=== PATIENT | female | born 1945 | race African-American/Black ===

== ENCOUNTER 2018-11-06 16:05 | Observation (INO) | payer SELFPAY ==
[2018-11-06] MEDS ORDERED: Ondansetron 4 MG/2 ML SDV IVPUSH ONE ×2 (16:40→19:01)
[2018-11-06] MEDS ORDERED: Ketorolac 30 MG/ML SDV IVPUSH ONE (16:40)
[2018-11-06] MEDS ORDERED: Sodium Chloride 0.9% 1,000 ML IV ONE (16:40)
--- NOTE | 2018-11-06 16:43 | EDM.PDOC ---
ED HPI GENERAL MEDICAL PROBLEM - General Chief Complaint: Headache Stated Complaint: SPOKE TO NURSE Time Seen by Provider: 11/06/18 16:37 Source of Information: Reports: Patient History Limitations: Reports: No Limitations - History of Present Illness INITIAL COMMENTS - FREE TEXT/NARRATIVE: HISTORY AND PHYSICAL: History of present illness: Patient is a 73-year-old female who presents to the emergency room with complaints of body aches, headache, decreased appetite and generalized abdominal pain x 1 week. She states that she has had a generalized headache without any light or noise sensitivity. She will occasionally get flashes of lights in her vision. Currently no visual changes. States she has generalized abdominal pain and decreased appetite, no nausea or vomiting. Concerned that she may be constipated. Denies any fever, chills, chest pain, shortness of breath or cough. Denies any diarrhea, vaginal bleeding/discharge or dysuria. The son who is with her states that she recently moved here from [place] after getting paperwork completed for residency in the [facility]. They are from [facility]. Speak a dialect of "thats not in the books". Son wanted her evaluated through the emergency room as they do not have a primary care provider with the recent move. Patient does have a history of hypertension. Review of systems: As per history of present illness and below otherwise all systems reviewed and negative. Past medical history: As per history of present illness and as reviewed below otherwise noncontributory. Surgical history: As per history of present illness and as reviewed below otherwise noncontributory. Social history: See social history for further information Family history: As per history of present illness and as reviewed below otherwise noncontributory. Physical exam: General: Well-developed and well nourished 73-year-old female. Alert. Nontoxic appearing and in no acute distress. HEENT: Atraumatic, normocephalic, pupils equal and reactive bilaterally, patient does have a normal variance of the droop of the right eye, negative for conjunctival pallor or scleral icterus, mucous membranes moist, TMs normal bilaterally, throat clear, neck supple, nontender, trachea midline. No drooling or trismus noted. No meningeal signs. No hot potato voice noted. Lungs: Clear to auscultation, breath sounds equal bilaterally, chest nontender. Heart: S1S2, regular rate and rhythm without overt murmur Abdomen: Soft, nondistended, diffuse tenderness throughout. Negative for masses or hepatosplenomegaly. Negative for costovertebral tenderness. Pelvis: Stable nontender. Genitourinary: Deferred. Rectal: Deferred. Skin: Intact, warm, dry. No lesions or rashes noted. Extremities: Atraumatic, negative for cords or calf pain. Neurovascular unremarkable. Neuro: Awake, alert, oriented. Cranial nerves II through XII unremarkable. Cerebellum unremarkable. Motor and sensory unremarkable throughout. Exam nonfocal. Notes: Lab work is unremarkable. Her abdominal xray films are negative. No previous EKG for comparison. This information was shared with the patient. She continues to have headache pain, abdominal pain, high blood pressure. I will add a head CT and CT of the abdomen and pelvis at this time. CT of the abdomen shows diverticulosis of the sigmoid colon without any evidence of diverticulitis or abscess. Otherwise CT is normal. CT of the head shows no intracranial hemorrhage, mass or lesions. There is some dense calcifications noted. Patient states she still has abdominal pain and migraine headache. Delma was consulted on this patient to this agreeable to keeping her for observation with telemetry. Diagnostics: CBC, CMP, influenza, UA, amylase, lipase Therapeutics: IV fluid, Zofran, Toradol Prescription: None Impression: Diffuse abdominal pain Intractible headache Plan: Observation admission to Med Surg with telemetry per Delma Definitive disposition and diagnosis as appropriate pending reevaluation and review of above. headache Pain Score (Numeric/FACES): 10 - Related Data Allergies Allergy/AdvReac Type Severity Reaction Status Date / Time No Known Allergies Allergy Verified 11/06/18 16:18 Home Meds: Home Meds Atropine 1% [Atropine 1% Ophth Soln] 1 drop EYERT DAILY 11/06/18 [History] Dorzolamide HCl/Timolol Maleat [Cosopt Eye Drops] 1 drop EARRT BID 11/06/18 [ History] amLODIPine Besylate [Amlodipine Besylate] 5 mg PO DAILY 11/06/18 [History] Past Medical History HEENT History: Reports: Cataract Other HEENT History: needs to have cataract surgery to repair retenia Cardiovascular History: Reports: Hypertension - Infectious Disease History Infectious Disease History: Reports: None Social & Family History - Family History Family Medical History: Noncontributory - Tobacco Use Smoking Status *Q: Never Smoker - Recreational Drug Use Recreational Drug Use: No ED ROS GENERAL - Review of Systems Review Of Systems: ROS reveals no pertinent complaints other than HPI. - Physical Exam Exam: See Below (See dictation) Course - Vital Signs Last Recorded V/S: Last Vital Signs Temp 98.2 F 11/06/18 20:48 Pulse 101 H 11/06/18 20:48 Resp 16 11/06/18 19:37 BP 153/84 H 11/06/18 20:48 Pulse Ox 98 11/06/18 20:48 - Orders/Labs/Meds Orders: Active Orders 24 hr Category Date Time Status EKG Documentation Completion [RC] STAT Care 11/06/18 17:38 Active Sodium Chloride 0.9% [Normal Saline] 1,000 ml Med 11/06/18 19:15 Active IV ASDIRECTED Medication Orders Sodium Chloride (Normal Saline) 1,000 mls @ 125 mls/hr IV ASDIRECTED JOELLEN Last Admin: 11/06/18 20:07 Dose: 125 mls/hr Labs: Laboratory Tests 11/06/18 11/06/18 11/06/18 Range/Units 16:53 16:53 16:53 WBC 7.46 (4.0-11.0) K/uL RBC 5.68 (4.30-5.90) M/uL Hgb 12.6 (12.0-16.0) g/dL Hct 38.9 (36.0-46.0) % MCV 68.5 L (80.0-98.0) fL MCH 22.2 L (27.0-32.0) pg MCHC 32.4 (31.0-37.0) g/dL RDW Std Deviation 33.3 (28.0-62.0) fl RDW Coeff of Yvette 14 (11.0-15.0) % Plt Count 280 (150-400) K/uL MPV 10.60 (7.40-12.00) fL Neut % (Auto) 60.4 (48.0-80.0) % Lymph % (Auto) 31.2 (16.0-40.0) % [place] % (Auto) 6.7 (0.0-15.0) % Eos % (Auto) 1.3 (0.0-7.0) % Baso % (Auto) 0.4 (0.0-1.5) % Neut # (Auto) 4.5 (1.4-5.7) K/uL Lymph # (Auto) 2.3 (0.6-2.4) K/uL [place] # (Auto) 0.5 (0.0-0.8) K/uL Eos # (Auto) 0.1 (0.0-0.7) K/uL Baso # (Auto) 0.0 (0.0-0.1) K/uL Nucleated RBC % 0.0 /100WBC Nucleated RBCs # 0 K/uL Sodium 140 (136-145) mmol/L Potassium 3.4 L (3.5-5.1) mmol/L Chloride 105 (98-107) mmol/L Carbon Dioxide 20.2 L (21.0-32.0) mmol/L BUN 13 (7.0-18.0) mg/dL Creatinine 0.6 (0.6-1.0) mg/dL Est Cr Clr Drug Dosing 73.19 mL/min Estimated GFR (MDRD) > 60.0 ml/min Glucose 123 H (74-106) mg/dL Calcium 10.2 H (8.5-10.1) mg/dL Total Bilirubin 0.3 (0.2-1.0) mg/dL AST 26 (15-37) IU/L ALT 37 (14-63) IU/L Alkaline Phosphatase 125 H (46-116) U/L Troponin I < 0.050 (0.000-0.056) ng/mL Total Protein 9.2 H (6.4-8.2) g/dL Albumin 4.3 (3.4-5.0) g/dL Globulin 4.9 H (2.6-4.0) g/dL Albumin/Globulin Ratio 0.9 (0.9-1.6) Amylase 38 (25-115) U/L Lipase 99 (73-393) U/L Urine Color Urine Appearance Urine pH (5.0-8.0) Ur Specific [place] (1.001-1.035) Urine Protein (NEGATIVE) mg/dL Urine Glucose (UA) (NEGATIVE) mg/dL Urine Ketones (NEGATIVE) mg/dL Urine Occult Blood (NEGATIVE) Urine Nitrite (NEGATIVE) Urine Bilirubin (NEGATIVE) Urine Urobilinogen (<2.0) EU/dL Ur Leukocyte Esterase (NEGATIVE) Urine RBC (0-2/HPF) Urine WBC (0-5/HPF) Ur Epithelial Cells (NONE-FEW) Urine Bacteria (NEGATIVE) 11/06/18 Range/Units 17:08 WBC (4.0-11.0) K/uL RBC (4.30-5.90) M/uL Hgb (12.0-16.0) g/dL Hct (36.0-46.0) % MCV (80.0-98.0) fL MCH (27.0-32.0) pg MCHC (31.0-37.0) g/dL RDW Std Deviation (28.0-62.0) fl RDW Coeff of Yvette (11.0-15.0) % Plt Count (150-400) K/uL MPV (7.40-12.00) fL Neut % (Auto) (48.0-80.0) % Lymph % (Auto) (16.0-40.0) % [place] % (Auto) (0.0-15.0) % Eos % (Auto) (0.0-7.0) % Baso % (Auto) (0.0-1.5) % Neut # (Auto) (1.4-5.7) K/uL Lymph # (Auto) (0.6-2.4) K/uL [place] # (Auto) (0.0-0.8) K/uL Eos # (Auto) (0.0-0.7) K/uL Baso # (Auto) (0.0-0.1) K/uL Nucleated RBC % /100WBC Nucleated RBCs # K/uL Sodium (136-145) mmol/L Potassium (3.5-5.1) mmol/L Chloride (98-107) mmol/L Carbon Dioxide (21.0-32.0) mmol/L BUN (7.0-18.0) mg/dL Creatinine (0.6-1.0) mg/dL Est Cr Clr Drug Dosing mL/min Estimated GFR (MDRD) ml/min Glucose (74-106) mg/dL Calcium (8.5-10.1) mg/dL Total Bilirubin (0.2-1.0) mg/dL AST (15-37) IU/L ALT (14-63) IU/L Alkaline Phosphatase (46-116) U/L Troponin I (0.000-0.056) ng/mL Total Protein (6.4-8.2) g/dL Albumin (3.4-5.0) g/dL Globulin (2.6-4.0) g/dL Albumin/Globulin Ratio (0.9-1.6) Amylase (25-115) U/L Lipase (73-393) U/L Urine Color YELLOW Urine Appearance CLEAR Urine pH 5.5 (5.0-8.0) Ur Specific [place] 1.010 (1.001-1.035) Urine Protein TRACE H (NEGATIVE) mg/dL Urine Glucose (UA) NEGATIVE (NEGATIVE) mg/dL Urine Ketones NEGATIVE (NEGATIVE) mg/dL Urine Occult Blood MODERATE H (NEGATIVE) Urine Nitrite NEGATIVE (NEGATIVE) Urine Bilirubin NEGATIVE (NEGATIVE) Urine Urobilinogen 0.2 (<2.0) EU/dL Ur Leukocyte Esterase NEGATIVE (NEGATIVE) Urine RBC 1-2 (0-2/HPF) Urine WBC 0-2 (0-5/HPF) Ur Epithelial Cells FEW (NONE-FEW) Urine Bacteria FEW (NEGATIVE) Meds: Medications Generic Name Dose Route Start Last Admin Trade Name Freq PRN Reason Stop Dose Admin Sodium Chloride 1,000 mls @ 125 mls/hr 11/06/18 19:15 11/06/18 20:07 Normal Saline IV 125 mls/hr ASDIRECTED JOELLEN Administration Discontinued Medications Generic Name Dose Route Start Last Admin Trade Name Freq PRN Reason Stop Dose Admin Sodium Chloride 1,000 mls @ 999 mls/hr 11/06/18 16:40 11/06/18 17:02 Normal Saline IV 11/06/18 17:40 999 mls/hr STAT ONE Administration Ketorolac Tromethamine 30 mg 11/06/18 16:40 11/06/18 17:02 Toradol IVPUSH 11/06/18 16:41 30 mg ONETIME ONE Administration Morphine Sulfate 2 mg 11/06/18 19:06 11/06/18 19:19 Morphine IVPUSH 11/06/18 19:07 2 mg ONETIME ONE Administration Ondansetron HCl 4 mg 11/06/18 16:40 11/06/18 17:02 Zofran IVPUSH 11/06/18 16:41 4 mg ONETIME ONE Administration Ondansetron HCl 4 mg 11/06/18 19:01 11/06/18 19:18 Zofran IVPUSH 11/06/18 19:02 4 mg ONETIME ONE Administration Departure - Departure Time of Disposition: 21:38 Disposition: Refer to Observation Clinical Impression: Diffuse abdominal pain Intractable migraine Qualifiers: Migraine type: unspecified - Discharge Information Referrals: PCP,None [Primary Care Provider] - Forms: ED Department Discharge - My Orders Last 24 Hours: My Active Orders 11/06/18 17:38 EKG Documentation Completion [RC] STAT 11/06/18 19:15 Sodium Chloride 0.9% [Normal Saline] 1,000 ml IV ASDIRECTED - Assessment/Plan Last 24 Hours: My Active Orders 11/06/18 17:38 EKG Documentation Completion [RC] STAT 11/06/18 19:15 Sodium Chloride 0.9% [Normal Saline] 1,000 ml IV ASDIRECTED
[2018-11-06 17:44] LABS: CHLORIDE,CL 105 mmol/L (98-107); SODIUM,NA 140 mmol/L (136-145)
--- NOTE | 2018-11-06 18:30 | CR ---
INDICATION: Abdominal pain. COMPARISON: None. TECHNIQUE: Single AP chest; two-view study abdomen including upright. FINDINGS: Normal size cardiac silhouette. Clear lung lance without evidence of acute pneumonic infiltrates or CHF. No pneumothorax or pleural effusion. Nonspecific intestinal gas pattern without any evidence of intestinal obstruction. No pneumoperitoneum. No abnormal intra-abdominal calcifications are identified. IMPRESSION: Negative chest and abdominal radiographs. Dictated by Sofia Cottrell MD @ Nov 06 2018 6:27PM Signed by Dr. Sofia Cottrell @ Nov 06 2018 6:28PM
[2018-11-06] MEDS ORDERED: Morphine 2 MG/ML Syringe IVPUSH ONE (19:06)
[2018-11-06] MEDS ORDERED: Sodium Chloride 0.9% 1,000 ML IV SCH (19:15)
--- NOTE | 2018-11-06 20:50 | CT ---
INDICATION: Abdominal pain. COMPARISON: Chest and abdominal radiograph same date. TECHNIQUE: CT abdomen and pelvis with intravenous contrast; coronal and sagittal reformats. FINDINGS: No abnormal intra pulmonary nodular densities through the lung bases. No evidence of pleural effusion. Normal size cardiac silhouette without any evidence of pericardial effusion. No focal hepatic or splenic pathology. No pancreatic pathology. Gallbladder is unremarkable. No adrenal pathology. No kidney stones or obstructive uropathy. No retroperitoneal lymphadenopathy. No evidence of abdominal or pelvic ascites. Normal appendix. Copious amounts of retained stool in the colon. Diverticulosis sigmoid colon without any CT evidence of diverticulitis or abscess. No evidence of intestinal obstruction. Splenic vein, superior mesenteric vein and the portal vein are unremarkable. Impression : 1. Normal appendix. 2. No kidneys stones or obstructive uropathy. 3. Diverticulosis sigmoid colon without any CT evidence of diverticulitis or abscess. 4. No pneumoperitoneum or intestinal obstruction. 5. Negative CT abdomen and pelvis with intravenous contrast otherwise. Please note that all CT scans at this facility use dose modulation, iterative reconstruction, and/or weight-based dosing when appropriate to reduce radiation dose to as low as reasonably achievable. Dictated by Sofia Cottrell MD @ Nov 06 2018 8:44PM Signed by Dr. Sofia Cottrell @ Nov 06 2018 8:47PM
--- NOTE | 2018-11-06 21:17 | CT ---
INDICATION: Headache; generalized body aches . Comparison: Non. TECHNIQUE: CT head without intravenous contrast; coronal and sagittal reformats. FINDINGS: No evidence of intracranial hemorrhage. No mass lesions. No evidence of shift of the midline structures. The calvarium is unremarkable. Dense calcification identified diffusely involving the basilar ganglia bilateral. Calcifications identified in the right cerebellum. Sometimes these findings can be associated with Fahr disease. Retention cyst left maxillary antrum. Fluid level right maxillary antrum. Impression : 1. Dense calcification right cerebellum. 2. Dense calcifications basilar ganglia bilateral. 3. If clinically needed, further assessment can be obtained by obtaining an MR study of the brain. 4. Fluid level right maxillary antrum and retention cyst in the left maxillary antrum. 5. No intracranial hemorrhage. Please note that all CT scans at this facility use dose modulation, iterative reconstruction, and/or weight-based dosing when appropriate to reduce radiation dose to as low as reasonably achievable. Dictated by Sofia Cottrell MD @ Nov 06 2018 8:43PM Signed by Dr. Sofia Cottrell @ Nov 06 2018 9:15PM
[2018-11-06] MEDS ORDERED: Acetaminophen 325 MG Tab PO PRN (23:14)
[2018-11-06] MEDS ORDERED: oxyCODONE 5 MG Tab PO PRN (23:14)
[2018-11-07] MEDS: Temazepam 15 MG Cap PO PRN ×2 (00:22→20:52)
[2018-11-07] MEDS: Sodium Chloride 0.9% 1,000 ML IV SCH ×2 (04:25→15:22)
[2018-11-07 07:15] LABS: CHLORIDE,CL 110 mmol/L (98-107); SODIUM,NA 143 mmol/L (136-145)
--- NOTE | 2018-11-07 07:27 | PCM.HP ---
H&P History of Present Illness - General Date of Service: 11/07/18 Admit Problem/Dx: Admission Diagnosis/Problem Admission Diagnosis/Problem Intractable headache Source of Information: Patient, Family History Limitations: Reports: Language Barrier - History of Present Illness Initial Comments - Free Text/Narative: The patient is a 73-year-old lady who presented to the emergency department with a chief complaint of not feeling well, headache and abdominal pain. The patient reports that she has had no bowel movement in the past several days. The patient came from [facility] in 2017 and she speaks a very isolated dialect that is not available through animal anatomist service. The patient's son is with her today and has been helping with translation. The patient has been feeling weak and fatigued for several weeks and may have had a presyncopal episode. He described as losing her feet and she has to sit down on the ground. The patient' s appetite has also been poor. She has had a history of chronic headaches secondary to her glaucoma and blind right eye. The patient today has denied any abdominal pain although she still is complaining of constipation. The patient has denied any fever or chills. The only medication that she has been taking his for her hypertension and this has been amlodipine at 5 mg by mouth daily. Also in the emergency department the patient's initial blood pressure was 186/ 99 mmHg. Her son says that she has been taking her medications and also has been noted to have both high and very low blood pressure. Onset of Symptoms: Reports: Gradual Duration of Symptoms: Reports: Day(s): Location: Reports: Head, Abdomen Quality: Reports: Throbbing Severity: Moderate Improves with: Reports: Rest Worsens with: Reports: Movement Context: Reports: Activity/Exercise Associated Symptoms: Reports: No Other Symptoms headache Pain Score (Numeric/FACES): 10 - Related Data Allergies/Adverse Reactions: Allergies Allergy/AdvReac Type Severity Reaction Status Date / Time No Known Allergies Allergy Verified 11/06/18 16:18 Home Medications: Home Meds amLODIPine Besylate [Amlodipine Besylate] 5 mg PO DAILY 11/06/18 [History] Dorzolamide HCl/Timolol Maleat [Dorzolamide-Timolol Eye Drops] 1 drop EYERT BID 11/07/18 [History] Past Medical History HEENT History: Reports: Cataract Other HEENT History: needs to have cataract surgery to repair retenia Cardiovascular History: Reports: Hypertension Respiratory History: Reports: None Gastrointestinal History: Reports: Chronic Constipation Genitourinary History: Reports: None Musculoskeletal History: Reports: None Neurological History: Reports: None Psychiatric History: Reports: None Endocrine/Metabolic History: Reports: None Hematologic History: Reports: None Immunologic History: Reports: None Dermatologic History: Reports: None - Infectious Disease History Infectious Disease History: Reports: None Social & Family History - Family History Family Medical History: Noncontributory - Tobacco Use Smoking Status *Q: Never Smoker - Caffeine Use Caffeine Use: Reports: None - Recreational Drug Use Recreational Drug Use: No - Living Situation & Occupation Living situation: Reports: , with Family Occupation: Unemployed H&P Review of Systems - Review of Systems: Review Of Systems: ROS reveals no pertinent complaints other than HPI. Exam - Exam Exam: See Below - Vital Signs Vital Signs: Last Vital Signs Temp 36.4 C 11/07/18 04:43 Pulse 86 11/07/18 04:43 Resp 16 11/07/18 04:43 BP 104/62 11/07/18 04:43 Pulse Ox 96 11/07/18 04:43 Weight: 62.278 kg - Exam Quality Assessment: No: Supplemental Oxygen General: Alert, Oriented, Cooperative HEENT: Conjunctiva Clear, EACs Clear, EOMI, Normal Nasal Septum. No: Mucosa Moist & [place] (Dry), PERRLA (Blind right eye) Neck: Supple, Trachea Midline, Full Range of Motion Lungs: Clear to Auscultation, Normal Respiratory Effort Cardiovascular: Regular Rate, Regular Rhythm, Normal S1, Normal S2 GI/Abdominal Exam: Normal Bowel Sounds, Soft, Non-Tender, No Distention (Female) Exam: Deferred Rectal (Female) Exam: Deferred Back Exam: Normal Inspection, Full Range of Motion Extremities: Normal Inspection, No Pedal Edema Skin: Warm, Dry, Intact Neurological: Cranial Nerves Intact Psychiatric: Alert, Normal Mood. No: Normal Affect (Flat) - Patient Data Lab Results Last 24 hrs: Laboratory Results - last 24 hr 11/06/18 11/06/18 11/06/18 Range/Units 16:53 16:53 16:53 WBC 7.46 (4.0-11.0) K/uL RBC 5.68 (4.30-5.90) M/uL Hgb 12.6 (12.0-16.0) g/dL Hct 38.9 (36.0-46.0) % MCV 68.5 L (80.0-98.0) fL MCH 22.2 L (27.0-32.0) pg MCHC 32.4 (31.0-37.0) g/dL RDW Std Deviation 33.3 (28.0-62.0) fl RDW Coeff of Yvette 14 (11.0-15.0) % Plt Count 280 (150-400) K/uL MPV 10.60 (7.40-12.00) fL Neut % (Auto) 60.4 (48.0-80.0) % Lymph % (Auto) 31.2 (16.0-40.0) % [place] % (Auto) 6.7 (0.0-15.0) % Eos % (Auto) 1.3 (0.0-7.0) % Baso % (Auto) 0.4 (0.0-1.5) % Neut # (Auto) 4.5 (1.4-5.7) K/uL Lymph # (Auto) 2.3 (0.6-2.4) K/uL [place] # (Auto) 0.5 (0.0-0.8) K/uL Eos # (Auto) 0.1 (0.0-0.7) K/uL Baso # (Auto) 0.0 (0.0-0.1) K/uL Nucleated RBC % 0.0 /100WBC Nucleated RBCs # 0 K/uL Sodium 140 (136-145) mmol/L Potassium 3.4 L (3.5-5.1) mmol/L Chloride 105 (98-107) mmol/L Carbon Dioxide 20.2 L (21.0-32.0) mmol/L BUN 13 (7.0-18.0) mg/dL Creatinine 0.6 (0.6-1.0) mg/dL Est Cr Clr Drug Dosing 73.19 mL/min Estimated GFR (MDRD) > 60.0 ml/min Glucose 123 H (74-106) mg/dL Calcium 10.2 H (8.5-10.1) mg/dL Phosphorus (2.6-4.7) mg/dL Magnesium (1.8-2.4) mg/dL Total Bilirubin 0.3 (0.2-1.0) mg/dL AST 26 (15-37) IU/L ALT 37 (14-63) IU/L Alkaline Phosphatase 125 H (46-116) U/L Troponin I < 0.050 (0.000-0.056) ng/mL Total Protein 9.2 H (6.4-8.2) g/dL Albumin 4.3 (3.4-5.0) g/dL Globulin 4.9 H (2.6-4.0) g/dL Albumin/Globulin Ratio 0.9 (0.9-1.6) Amylase 38 (25-115) U/L Lipase 99 (73-393) U/L Urine Color Urine Appearance Urine pH (5.0-8.0) Ur Specific [place] (1.001-1.035) Urine Protein (NEGATIVE) mg/dL Urine Glucose (UA) (NEGATIVE) mg/dL Urine Ketones (NEGATIVE) mg/dL Urine Occult Blood (NEGATIVE) Urine Nitrite (NEGATIVE) Urine Bilirubin (NEGATIVE) Urine Urobilinogen (<2.0) EU/dL Ur Leukocyte Esterase (NEGATIVE) Urine RBC (0-2/HPF) Urine WBC (0-5/HPF) Ur Epithelial Cells (NONE-FEW) Urine Bacteria (NEGATIVE) 11/06/18 11/07/18 11/07/18 Range/Units 17:08 06:13 06:13 WBC 6.64 (4.0-11.0) K/uL RBC 4.63 (4.30-5.90) M/uL Hgb 10.0 L (12.0-16.0) g/dL Hct 32.2 L (36.0-46.0) % MCV 69.5 L (80.0-98.0) fL MCH 21.6 L (27.0-32.0) pg MCHC 31.1 (31.0-37.0) g/dL RDW Std Deviation 34.4 (28.0-62.0) fl RDW Coeff of Yvette 14 (11.0-15.0) % Plt Count 236 (150-400) K/uL MPV 10.50 (7.40-12.00) fL Neut % (Auto) 56.4 (48.0-80.0) % Lymph % (Auto) 34.0 (16.0-40.0) % [place] % (Auto) 8.4 (0.0-15.0) % Eos % (Auto) 0.9 (0.0-7.0) % Baso % (Auto) 0.3 (0.0-1.5) % Neut # (Auto) 3.7 (1.4-5.7) K/uL Lymph # (Auto) 2.3 (0.6-2.4) K/uL [place] # (Auto) 0.6 (0.0-0.8) K/uL Eos # (Auto) 0.1 (0.0-0.7) K/uL Baso # (Auto) 0.0 (0.0-0.1) K/uL Nucleated RBC % 0.0 /100WBC Nucleated RBCs # 0 K/uL Sodium 143 (136-145) mmol/L Potassium 3.3 L (3.5-5.1) mmol/L Chloride 110 H (98-107) mmol/L Carbon Dioxide 22.8 (21.0-32.0) mmol/L BUN 11 (7.0-18.0) mg/dL Creatinine 0.7 (0.6-1.0) mg/dL Est Cr Clr Drug Dosing 68.01 mL/min Estimated GFR (MDRD) > 60.0 ml/min Glucose 95 (74-106) mg/dL Calcium 9.0 (8.5-10.1) mg/dL Phosphorus 2.8 (2.6-4.7) mg/dL Magnesium 1.9 (1.8-2.4) mg/dL Total Bilirubin 0.2 (0.2-1.0) mg/dL AST 14 L (15-37) IU/L ALT 22 (14-63) IU/L Alkaline Phosphatase 96 (46-116) U/L Troponin I (0.000-0.056) ng/mL Total Protein 7.6 (6.4-8.2) g/dL Albumin 3.2 L (3.4-5.0) g/dL Globulin 4.4 H (2.6-4.0) g/dL Albumin/Globulin Ratio 0.7 L (0.9-1.6) Amylase (25-115) U/L Lipase (73-393) U/L Urine Color YELLOW Urine Appearance CLEAR Urine pH 5.5 (5.0-8.0) Ur Specific [place] 1.010 (1.001-1.035) Urine Protein TRACE H (NEGATIVE) mg/dL Urine Glucose (UA) NEGATIVE (NEGATIVE) mg/dL Urine Ketones NEGATIVE (NEGATIVE) mg/dL Urine Occult Blood MODERATE H (NEGATIVE) Urine Nitrite NEGATIVE (NEGATIVE) Urine Bilirubin NEGATIVE (NEGATIVE) Urine Urobilinogen 0.2 (<2.0) EU/dL Ur Leukocyte Esterase NEGATIVE (NEGATIVE) Urine RBC 1-2 (0-2/HPF) Urine WBC 0-2 (0-5/HPF) Ur Epithelial Cells FEW (NONE-FEW) Urine Bacteria FEW (NEGATIVE) Result Diagrams: 11/07/18 06:13 11/07/18 06:13 Leonard Results Last 24 hrs: Microbiology 11/06/18 17:08 Influenza Type A Antigen Screen - Final Nasopharyngeal Swab NEGATIVE INFLUENZA A VIRUS AG Influenza Type B Antigen Screen - Final NEGATIVE INFLUENZA B VIRUS AG *Q Meaningful Use (ADM) - VTE *Q VTE Mechanical Contraindications *Q: At Risk for Falls - Problem List (1) Right bundle branch block (RBBB) with left anterior fascicular block (LAFB) SNOMED Code(s): 46613284 ICD Code: I45.2 - BIFASCICULAR BLOCK Status: Chronic Priority: High Current Visit: Yes (2) Diffuse abdominal pain SNOMED Code(s): 035192717, 587154584 ICD Code: R10.84 - GENERALIZED ABDOMINAL PAIN Status: Acute Current Visit : Yes (3) Blind right eye SNOMED Code(s): 621534319 ICD Code: H54.40 - BLINDNESS, ONE EYE, UNSPECIFIED EYE Status: Chronic Priority: High Current Visit: Yes (4) Constipation SNOMED Code(s): 67766140 ICD Code: K59.00 - CONSTIPATION, UNSPECIFIED Status: Acute Priority: High Current Visit: Yes Qualifiers: Constipation type: other constipation type Qualified Code(s): K59.09 - Other constipation (5) Hypertension SNOMED Code(s): 45533616 ICD Code: I10 - ESSENTIAL (PRIMARY) HYPERTENSION Status: Chronic Priority : High Current Visit: Yes Qualifiers: Hypertension type: essential hypertension Qualified Code(s): I10 - Essential (primary) hypertension (6) Hypokalemia SNOMED Code(s): 95166347 ICD Code: E87.6 - HYPOKALEMIA Status: Acute Priority: High Current Visit: Yes (7) Neurocardiogenic pre-syncope SNOMED Code(s): 160751884 ICD Code: R55 - SYNCOPE AND COLLAPSE Status: Acute Priority: High Current Visit: Yes (8) Weakness SNOMED Code(s): 32909691 ICD Code: R53.1 - WEAKNESS Status: Chronic Priority: High Current Visit : Yes Problem List Initiated/Reviewed/Updated: Yes Orders Last 24hrs: Active Orders 24 hr Category Date Time Status Admission Status [Patient Status] [ADT] Stat ADT 11/06/18 21:31 Active EKG Documentation Completion [RC] STAT Care 11/06/18 17:38 Active Clear Liquid Diet [DIET] Diet 11/07/18 Breakfast Active Acetaminophen [Tylenol] Med 11/06/18 23:14 Active 650 mg PO Q4H PRN Atropine 1% [Atropine 1% Ophth Soln] Med 11/07/18 09:00 Active 0 ml EYERT DAILY Dorzolamide [Trusopt 2% Ophth Soln] Med 11/07/18 09:00 Active See Dose Instructions .XX DAILY FLU Vacc SF1010-80(65YR UP)/PF [Fluzone High-Dose 2018- Med 11/07/18 10:00 Once 19 Syringe] 180 mcg IM .ONCE ONE Sodium Chloride 0.9% [Normal Saline] 1,000 ml Med 11/06/18 23:30 Active IV ASDIRECTED Temazepam [Restoril] Med 11/06/18 23:14 Active 15 mg PO BEDTIME PRN amLODIPine [Norvasc] Med 11/07/18 09:00 Active 5 mg PO DAILY oxyCODONE Med 11/06/18 23:14 Active 5 mg PO Q4H PRN Medication Orders Acetaminophen (Tylenol) 650 mg PO Q4H PRN PRN Reason: Pain (mild 1-3) Amlodipine Besylate (Norvasc) 5 mg PO DAILY JOELLEN Atropine Sulfate (Atropine 1% Ophth Soln) 0 ml EYERT DAILY JOELLEN Dorzolamide HCl (Trusopt 2% Ophth Soln) 0 ml .XX DAILY JOELLEN Sodium Chloride (Normal Saline) 1,000 mls @ 100 mls/hr IV ASDIRECTED JOELLEN Last Admin: 11/07/18 04:25 Dose: 100 mls/hr Influenza Virus Vaccine (Fluzone High-Dose Syringe) 180 mcg IM .ONCE ONE Stop: 11/07/18 10:01 Oxycodone HCl (Oxycodone) 5 mg PO Q4H PRN PRN Reason: Pain (severe 7-10) Temazepam (Restoril) 15 mg PO BEDTIME PRN PRN Reason: Sleep Last Admin: 11/07/18 00:22 Dose: 15 mg Assessment/Plan Comment:: The patient is a 73-year-old lady who is admitted secondary to some vague complaints. The patient's medical history has somewhat been compromised by her language barrier. The patient is from [facility] and she speaks a remote isolated dialect that is not available with animal anatomist services. Her son has been very good about translating. The patient has been admitted to observation patient. We 'll keep the patient on telemetry. Repeat laboratory studies have been ordered. The patient has been noted also to have mild hypokalemia and this will be replaced orally. I've ordered repeat EKG. Patient does have some evidence of right bundle branch block with left anterior fascicular block. In light of the patient having possible syncopal episode as well as wide variations in her blood pressure I'm concerned that she may be transiting into third-degree heart block at times. This may require specialty treatment at tertiary care center. A repeat EKG is ordered and this is currently pending. The patient will be kept on monitoring with regards to her blood pressure and medications will be added as necessary. The patient has been encouraged to ambulate however, secondary to her weakness and fatigue she has been reluctant to do this. The patient will be kept on heart healthy diet.
[2018-11-07] MEDS ORDERED: Sennosides 8.6 MG Tab PO PRN (08:53)
[2018-11-07] MEDS ORDERED: Dorzolamide/Timolol 2%-0.5% Ophth Soln 10 ML Bottle EYEBOTH SCH (09:00)
[2018-11-07] MEDS ORDERED: Atropine 1% Ophth Soln 5 ML BOTTLE EYERT SCH ×3 (09:00→09:03)
[2018-11-07] MEDS ORDERED: amLODIPine 5 MG Tab PO SCH (09:00)
[2018-11-07] MEDS ORDERED: Dorzolamide 2% Ophth Soln 10 ML Bottle SCH (09:00)
[2018-11-07] MEDS ORDERED: Dorzolamide 2% Ophth Soln 10 ML Bottle EYERT SCH (09:04)
[2018-11-07] MEDS: amLODIPine 5 MG Tab PO SCH (09:05)
[2018-11-07] MEDS ORDERED: Potassium Chloride 20 MEQ Tab.ER PO ONE (09:14)
[2018-11-07] MEDS: Enoxaparin 40 MG/0.4 ML Syringe SUBCUT SCH (10:20)
[2018-11-07] MEDS: Dorzolamide 2% Ophth Soln 10 ML Bottle EYERT SCH ×3 (10:24→20:43)
--- NOTE | 2018-11-07 11:44 | PCM.DCSUM1 ---
Discharge Summary - Discharge Data Discharge Disposition: Home, Self-Care 01 Condition: Stable - Discharge Diagnosis/Problem(s) (1) Right bundle branch block (RBBB) with left anterior fascicular block (LAFB) SNOMED Code(s): 48705376 ICD Code: I45.2 - BIFASCICULAR BLOCK Status: Chronic Priority: High Current Visit: Yes (2) Diffuse abdominal pain SNOMED Code(s): 621307472, 739221150 ICD Code: R10.84 - GENERALIZED ABDOMINAL PAIN Status: Acute Current Visit : Yes (3) Blind right eye SNOMED Code(s): 820545292 ICD Code: H54.40 - BLINDNESS, ONE EYE, UNSPECIFIED EYE Status: Chronic Priority: High Current Visit: Yes (4) Constipation SNOMED Code(s): 57935665 ICD Code: K59.00 - CONSTIPATION, UNSPECIFIED Status: Acute Priority: High Current Visit: Yes Qualifiers: Constipation type: other constipation type Qualified Code(s): K59.09 - Other constipation (5) Hypertension SNOMED Code(s): 28387684 ICD Code: I10 - ESSENTIAL (PRIMARY) HYPERTENSION Status: Chronic Priority : High Current Visit: Yes Qualifiers: Hypertension type: essential hypertension Qualified Code(s): I10 - Essential (primary) hypertension (6) Hypokalemia SNOMED Code(s): 19918900 ICD Code: E87.6 - HYPOKALEMIA Status: Acute Priority: High Current Visit: Yes (7) Neurocardiogenic pre-syncope SNOMED Code(s): 300342267 ICD Code: R55 - SYNCOPE AND COLLAPSE Status: Acute Priority: High Current Visit: Yes (8) Weakness SNOMED Code(s): 69455421 ICD Code: R53.1 - WEAKNESS Status: Chronic Priority: High Current Visit : Yes - Discharge Plan Home Medications: Home Meds amLODIPine Besylate [Amlodipine Besylate] 5 mg PO DAILY 11/06/18 [History] Dorzolamide HCl/Timolol Maleat [Dorzolamide-Timolol Eye Drops] 1 drop EYERT BID 11/07/18 [History] Forms: ED Department Discharge Referrals: PCP,None [Primary Care Provider] - - Patient Data Vitals - Most Recent: Last Vital Signs Temp 36.2 C 11/07/18 07:40 Pulse 97 11/07/18 07:40 Resp 16 11/07/18 07:40 BP 162/81 H 11/07/18 09:05 Pulse Ox 98 11/07/18 07:40 Weight - Most Recent: 62.278 kg I&O - Last 24 hours: Intake & Output 11/06/18 11/07/18 11/07/18 22:59 06:59 14:59 Intake Total 1939 Output Total 100 Balance 1839 Lab Results - Last 24 hrs: Laboratory Results - last 24 hr 11/06/18 11/06/18 11/06/18 Range/Units 16:53 16:53 16:53 WBC 7.46 (4.0-11.0) K/uL RBC 5.68 (4.30-5.90) M/uL Hgb 12.6 (12.0-16.0) g/dL Hct 38.9 (36.0-46.0) % MCV 68.5 L (80.0-98.0) fL MCH 22.2 L (27.0-32.0) pg MCHC 32.4 (31.0-37.0) g/dL RDW Std Deviation 33.3 (28.0-62.0) fl RDW Coeff of Yvette 14 (11.0-15.0) % Plt Count 280 (150-400) K/uL MPV 10.60 (7.40-12.00) fL Neut % (Auto) 60.4 (48.0-80.0) % Lymph % (Auto) 31.2 (16.0-40.0) % [place] % (Auto) 6.7 (0.0-15.0) % Eos % (Auto) 1.3 (0.0-7.0) % Baso % (Auto) 0.4 (0.0-1.5) % Neut # (Auto) 4.5 (1.4-5.7) K/uL Lymph # (Auto) 2.3 (0.6-2.4) K/uL [place] # (Auto) 0.5 (0.0-0.8) K/uL Eos # (Auto) 0.1 (0.0-0.7) K/uL Baso # (Auto) 0.0 (0.0-0.1) K/uL Nucleated RBC % 0.0 /100WBC Nucleated RBCs # 0 K/uL Sodium 140 (136-145) mmol/L Potassium 3.4 L (3.5-5.1) mmol/L Chloride 105 (98-107) mmol/L Carbon Dioxide 20.2 L (21.0-32.0) mmol/L BUN 13 (7.0-18.0) mg/dL Creatinine 0.6 (0.6-1.0) mg/dL Est Cr Clr Drug Dosing 73.19 mL/min Estimated GFR (MDRD) > 60.0 ml/min Glucose 123 H (74-106) mg/dL Calcium 10.2 H (8.5-10.1) mg/dL Phosphorus (2.6-4.7) mg/dL Magnesium (1.8-2.4) mg/dL Total Bilirubin 0.3 (0.2-1.0) mg/dL AST 26 (15-37) IU/L ALT 37 (14-63) IU/L Alkaline Phosphatase 125 H (46-116) U/L Troponin I < 0.050 (0.000-0.056) ng/mL Total Protein 9.2 H (6.4-8.2) g/dL Albumin 4.3 (3.4-5.0) g/dL Globulin 4.9 H (2.6-4.0) g/dL Albumin/Globulin Ratio 0.9 (0.9-1.6) Amylase 38 (25-115) U/L Lipase 99 (73-393) U/L Urine Color Urine Appearance Urine pH (5.0-8.0) Ur Specific [place] (1.001-1.035) Urine Protein (NEGATIVE) mg/dL Urine Glucose (UA) (NEGATIVE) mg/dL Urine Ketones (NEGATIVE) mg/dL Urine Occult Blood (NEGATIVE) Urine Nitrite (NEGATIVE) Urine Bilirubin (NEGATIVE) Urine Urobilinogen (<2.0) EU/dL Ur Leukocyte Esterase (NEGATIVE) Urine RBC (0-2/HPF) Urine WBC (0-5/HPF) Ur Epithelial Cells (NONE-FEW) Urine Bacteria (NEGATIVE) 11/06/18 11/07/18 11/07/18 Range/Units 17:08 06:13 06:13 WBC 6.64 (4.0-11.0) K/uL RBC 4.63 (4.30-5.90) M/uL Hgb 10.0 L (12.0-16.0) g/dL Hct 32.2 L (36.0-46.0) % MCV 69.5 L (80.0-98.0) fL MCH 21.6 L (27.0-32.0) pg MCHC 31.1 (31.0-37.0) g/dL RDW Std Deviation 34.4 (28.0-62.0) fl RDW Coeff of Yvette 14 (11.0-15.0) % Plt Count 236 (150-400) K/uL MPV 10.50 (7.40-12.00) fL Neut % (Auto) 56.4 (48.0-80.0) % Lymph % (Auto) 34.0 (16.0-40.0) % [place] % (Auto) 8.4 (0.0-15.0) % Eos % (Auto) 0.9 (0.0-7.0) % Baso % (Auto) 0.3 (0.0-1.5) % Neut # (Auto) 3.7 (1.4-5.7) K/uL Lymph # (Auto) 2.3 (0.6-2.4) K/uL [place] # (Auto) 0.6 (0.0-0.8) K/uL Eos # (Auto) 0.1 (0.0-0.7) K/uL Baso # (Auto) 0.0 (0.0-0.1) K/uL Nucleated RBC % 0.0 /100WBC Nucleated RBCs # 0 K/uL Sodium 143 (136-145) mmol/L Potassium 3.3 L (3.5-5.1) mmol/L Chloride 110 H (98-107) mmol/L Carbon Dioxide 22.8 (21.0-32.0) mmol/L BUN 11 (7.0-18.0) mg/dL Creatinine 0.7 (0.6-1.0) mg/dL Est Cr Clr Drug Dosing 68.01 mL/min Estimated GFR (MDRD) > 60.0 ml/min Glucose 95 (74-106) mg/dL Calcium 9.0 (8.5-10.1) mg/dL Phosphorus 2.8 (2.6-4.7) mg/dL Magnesium 1.9 (1.8-2.4) mg/dL Total Bilirubin 0.2 (0.2-1.0) mg/dL AST 14 L (15-37) IU/L ALT 22 (14-63) IU/L Alkaline Phosphatase 96 (46-116) U/L Troponin I (0.000-0.056) ng/mL Total Protein 7.6 (6.4-8.2) g/dL Albumin 3.2 L (3.4-5.0) g/dL Globulin 4.4 H (2.6-4.0) g/dL Albumin/Globulin Ratio 0.7 L (0.9-1.6) Amylase (25-115) U/L Lipase (73-393) U/L Urine Color YELLOW Urine Appearance CLEAR Urine pH 5.5 (5.0-8.0) Ur Specific [place] 1.010 (1.001-1.035) Urine Protein TRACE H (NEGATIVE) mg/dL Urine Glucose (UA) NEGATIVE (NEGATIVE) mg/dL Urine Ketones NEGATIVE (NEGATIVE) mg/dL Urine Occult Blood MODERATE H (NEGATIVE) Urine Nitrite NEGATIVE (NEGATIVE) Urine Bilirubin NEGATIVE (NEGATIVE) Urine Urobilinogen 0.2 (<2.0) EU/dL Ur Leukocyte Esterase NEGATIVE (NEGATIVE) Urine RBC 1-2 (0-2/HPF) Urine WBC 0-2 (0-5/HPF) Ur Epithelial Cells FEW (NONE-FEW) Urine Bacteria FEW (NEGATIVE) TROY Results - Last 24 hrs: Microbiology 11/06/18 17:08 Influenza Type A Antigen Screen - Final Nasopharyngeal Swab NEGATIVE INFLUENZA A VIRUS AG Influenza Type B Antigen Screen - Final NEGATIVE INFLUENZA B VIRUS AG Med Orders - Current: Current Medications Acetaminophen (Tylenol) 650 mg PO Q4H PRN PRN Reason: Pain (mild 1-3) Amlodipine Besylate (Norvasc) 5 mg PO DAILY [facility] Last Admin: 11/07/18 09:05 Dose: 5 mg Enoxaparin Sodium (Lovenox) 40 mg SUBCUT Q24H [facility] Last Admin: 11/07/18 10:20 Dose: 40 mg Sodium Chloride (Normal Saline) 1,000 mls @ 100 mls/hr IV ASDIRECTED [facility] Last Admin: 11/07/18 04:25 Dose: 100 mls/hr Oxycodone HCl (Oxycodone) 5 mg PO Q4H PRN PRN Reason: Pain (severe 7-10) Atropine 1% Ophth (Soln 5 Ml Bottle) 0 each EYERT DAILY [facility] Dorzolamide 2% Ophth (Soln 10 Ml Bottle) 0 each EYERT BID [facility] Last Admin: 11/07/18 10:24 Dose: Not Given Senna (Senna) 8.6 mg PO BID PRN PRN Reason: Constipation Last Admin: 11/07/18 10:20 Dose: 8.6 mg Temazepam (Restoril) 15 mg PO BEDTIME PRN PRN Reason: Sleep Last Admin: 11/07/18 00:22 Dose: 15 mg Discontinued Medications Atropine Sulfate (Atropine 1% Ophth Soln) 0 ml EYERT DAILY [facility] Last Admin: 11/07/18 09:18 Dose: Not Given Dorzolamide HCl (Trusopt 2% Ophth Soln) 0 ml .XX DAILY [facility] Last Admin: 11/07/18 09:18 Dose: Not Given Sodium Chloride (Normal Saline) 1,000 mls @ 999 mls/hr IV STAT ONE Stop: 11/06/18 17:40 Last Admin: 11/06/18 17:02 Dose: 999 mls/hr Sodium Chloride (Normal Saline) 1,000 mls @ 125 mls/hr IV ASDIRECTED [facility] Last Admin: 11/06/18 20:07 Dose: 125 mls/hr Influenza Virus Vaccine (Pharmacy To Dose - Influenza Vaccine) 1 each IM ONETIME ONE Stop: 11/07/18 12:01 Influenza Virus Vaccine (Fluzone High-Dose Syringe) 180 mcg IM .ONCE ONE Stop: 11/07/18 10:01 Ketorolac Tromethamine (Toradol) 30 mg IVPUSH ONETIME ONE Stop: 11/06/18 16:41 Last Admin: 11/06/18 17:02 Dose: 30 mg Morphine Sulfate (Morphine) 2 mg IVPUSH ONETIME ONE Stop: 11/06/18 19:07 Last Admin: 11/06/18 19:19 Dose: 2 mg Ondansetron HCl (Zofran) 4 mg IVPUSH ONETIME ONE Stop: 11/06/18 16:41 Last Admin: 11/06/18 17:02 Dose: 4 mg Ondansetron HCl (Zofran) 4 mg IVPUSH ONETIME ONE Stop: 11/06/18 19:02 Last Admin: 11/06/18 19:18 Dose: 4 mg Dorzolamide 2% Ophth (Soln 10 Ml Bottle) 0 each EYERT DAILY JOELLEN Potassium Chloride (Klor-Con M20) 20 meq PO ONETIME ONE Stop: 11/07/18 09:15 Last Admin: 11/07/18 10:20 Dose: 20 meq *Q Meaningful Use (DIS) - VTE *Q VTE Mechanical Contraindications *Q: At Risk for Falls
[2018-11-07] MEDS ORDERED: Dorzolamide/Timolol 2%-0.5% Ophth Soln 10 ML Bottle EYERT SCH (21:00)
[2018-11-08 06:23] LABS: CHLORIDE,CL 108 mmol/L (98-107); SODIUM,NA 143 mmol/L (136-145)
[2018-11-08] MEDS ORDERED: Potassium Chloride 20 MEQ Tab.ER PO ONE (08:11)
[2018-11-08] MEDS ORDERED: Magnesium Sulfate/Water 2 GM in Premix Bag 1 BAG IV ONE (08:11)
[2018-11-08] MEDS ORDERED: Magnesium Sulfate/Water 50 ML ONE (08:21)
[2018-11-08] MEDS: amLODIPine 5 MG Tab PO SCH (08:36)
[2018-11-08] MEDS: Enoxaparin 40 MG/0.4 ML Syringe SUBCUT SCH (08:37)
[2018-11-08] MEDS: Dorzolamide 2% Ophth Soln 10 ML Bottle EYERT SCH (08:37)
--- NOTE | 2018-11-08 10:23 | PCM.PN ---
- General Info Date of Service: 11/08/18 Admission Dx/Problem (Free Text): Admission Diagnosis/Problem Admission Diagnosis/Problem Pre- syncope Subjective Update: Alert, son is not at bedside. Unable to communicate at this time. Will visit again with son present due to communication barrier. - Patient Data Vitals - Most Recent: Last Vital Signs Temp 97.8 F 11/08/18 08:00 Pulse 87 11/08/18 08:00 Resp 15 11/08/18 08:00 BP 135/83 11/08/18 08:36 Pulse Ox 98 11/08/18 08:00 Weight - Most Recent: 62.278 kg I&O - Last 24 Hours: Intake & Output 11/07/18 11/08/18 11/08/18 22:59 06:59 14:59 Intake Total 2010 1399 Output Total 1150 825 Balance 861 575 Lab Results Last 24 Hours: Laboratory Results - last 24 hr 11/08/18 11/08/18 Range/Units 05:31 05:31 WBC 5.16 (4.0-11.0) K/uL RBC 4.85 (4.30-5.90) M/uL Hgb 10.5 L (12.0-16.0) g/dL Hct 33.9 L (36.0-46.0) % MCV 69.9 L (80.0-98.0) fL MCH 21.6 L (27.0-32.0) pg MCHC 31.0 (31.0-37.0) g/dL RDW Std Deviation 34.7 (28.0-62.0) fl RDW Coeff of Yvette 14 (11.0-15.0) % Plt Count 247 (150-400) K/uL MPV 10.70 (7.40-12.00) fL Neut % (Auto) 46.7 L (48.0-80.0) % Lymph % (Auto) 43.4 H (16.0-40.0) % Blair % (Auto) 7.2 (0.0-15.0) % Eos % (Auto) 2.3 (0.0-7.0) % Baso % (Auto) 0.4 (0.0-1.5) % Neut # (Auto) 2.4 (1.4-5.7) K/uL Lymph # (Auto) 2.2 (0.6-2.4) K/uL Blair # (Auto) 0.4 (0.0-0.8) K/uL Eos # (Auto) 0.1 (0.0-0.7) K/uL Baso # (Auto) 0.0 (0.0-0.1) K/uL Nucleated RBC % 0.0 /100WBC Nucleated RBCs # 0 K/uL Sodium 143 (136-145) mmol/L Potassium 3.5 (3.5-5.1) mmol/L Chloride 108 H (98-107) mmol/L Carbon Dioxide 25.1 (21.0-32.0) mmol/L BUN 8 (7.0-18.0) mg/dL Creatinine 0.7 (0.6-1.0) mg/dL Est Cr Clr Drug Dosing 68.01 mL/min Estimated GFR (MDRD) > 60.0 ml/min Glucose 99 (74-106) mg/dL Calcium 9.1 (8.5-10.1) mg/dL Magnesium 1.6 L (1.8-2.4) mg/dL Total Bilirubin 0.3 (0.2-1.0) mg/dL AST 22 (15-37) IU/L ALT 26 (14-63) IU/L Alkaline Phosphatase 95 (46-116) U/L Total Protein 7.5 (6.4-8.2) g/dL Albumin 3.4 (3.4-5.0) g/dL Globulin 4.1 H (2.6-4.0) g/dL Albumin/Globulin Ratio 0.8 L (0.9-1.6) Med Orders - Current: Current Medications Acetaminophen (Tylenol) 650 mg PO Q4H PRN PRN Reason: Pain (mild 1-3) Amlodipine Besylate (Norvasc) 5 mg PO DAILY [facility] Last Admin: 11/08/18 08:36 Dose: 5 mg Enoxaparin Sodium (Lovenox) 40 mg SUBCUT Q24H [facility] Last Admin: 11/08/18 08:37 Dose: 40 mg Oxycodone HCl (Oxycodone) 5 mg PO Q4H PRN PRN Reason: Pain (severe 7-10) Dorzolamide 2% Ophth (Soln 10 Ml Bottle) 0 each EYERT BID [facility] Last Admin: 11/08/18 08:37 Dose: 1 each Senna (Senna) 8.6 mg PO BID PRN PRN Reason: Constipation Last Admin: 11/07/18 10:20 Dose: 8.6 mg Temazepam (Restoril) 15 mg PO BEDTIME PRN PRN Reason: Sleep Last Admin: 11/07/18 20:52 Dose: 15 mg Discontinued Medications Atropine Sulfate (Atropine 1% Ophth Soln) 0 ml EYERT DAILY [facility] Last Admin: 11/07/18 09:18 Dose: Not Given Dorzolamide HCl (Trusopt 2% Ophth Soln) 0 ml .XX DAILY [facility] Last Admin: 11/07/18 09:18 Dose: Not Given Sodium Chloride (Normal Saline) 1,000 mls @ 999 mls/hr IV STAT ONE Stop: 11/06/18 17:40 Last Admin: 11/06/18 17:02 Dose: 999 mls/hr Sodium Chloride (Normal Saline) 1,000 mls @ 125 mls/hr IV ASDIRECTED [facility] Last Admin: 11/06/18 20:07 Dose: 125 mls/hr Sodium Chloride (Normal Saline) 1,000 mls @ 100 mls/hr IV ASDIRECTED [facility] Last Admin: 11/07/18 15:22 Dose: 100 mls/hr Magnesium Sulfate 2 gm/ Premix 50 mls @ 50 mls/hr IV ONETIME ONE Stop: 11/08/18 09:10 Last Admin: 11/08/18 08:36 Dose: 50 mls/hr Magnesium Sulfate (Magnesium Sulfate 2 Gm In Water 50 Ml) Confirm Administered Dose 50 mls @ as directed .ROUTE .STK-MED ONE Stop: 11/08/18 08:22 Last Admin: 11/08/18 08:42 Dose: Not Given Influenza Virus Vaccine (Pharmacy To Dose - Influenza Vaccine) 1 each IM ONETIME ONE Stop: 11/07/18 12:01 Influenza Virus Vaccine (Fluzone High-Dose Syringe) 180 mcg IM .ONCE ONE Stop: 11/07/18 10:01 Last Admin: 11/07/18 18:42 Dose: Not Given Ketorolac Tromethamine (Toradol) 30 mg IVPUSH ONETIME ONE Stop: 11/06/18 16:41 Last Admin: 11/06/18 17:02 Dose: 30 mg Morphine Sulfate (Morphine) 2 mg IVPUSH ONETIME ONE Stop: 11/06/18 19:07 Last Admin: 11/06/18 19:19 Dose: 2 mg Ondansetron HCl (Zofran) 4 mg IVPUSH ONETIME ONE Stop: 11/06/18 16:41 Last Admin: 11/06/18 17:02 Dose: 4 mg Ondansetron HCl (Zofran) 4 mg IVPUSH ONETIME ONE Stop: 11/06/18 19:02 Last Admin: 11/06/18 19:18 Dose: 4 mg Dorzolamide 2% Ophth (Soln 10 Ml Bottle) 0 each EYERT DAILY [facility] Potassium Chloride (Klor-Con M20) 20 meq PO ONETIME ONE Stop: 11/07/18 09:15 Last Admin: 11/07/18 10:20 Dose: 20 meq Potassium Chloride (Klor-Con M20) 40 meq PO ONETIME ONE Stop: 11/08/18 08:12 Last Admin: 11/08/18 08:36 Dose: 40 meq - Exam Lungs: Clear to Auscultation, Normal Respiratory Effort Cardiovascular: Regular Rate, Regular Rhythm, No Murmurs Extremities: Normal Inspection, Normal Range of Motion, Non-Tender, No Pedal Edema Neurological: No New Focal Deficit Psy/Mental Status: Alert, Normal Affect, Normal Mood - Problem List & Annotations (1) Neurocardiogenic pre-syncope SNOMED Code(s): 572578373 Code(s): R55 - SYNCOPE AND COLLAPSE Status: Acute Priority: High Current Visit: Yes (2) Weakness SNOMED Code(s): 45074715 Code(s): R53.1 - WEAKNESS Status: Chronic Priority: High Current Visit : Yes (3) Glaucoma SNOMED Code(s): 90114072 Code(s): H40.9 - UNSPECIFIED GLAUCOMA Status: Chronic Current Visit: Yes (4) Blind right eye SNOMED Code(s): 682974413 Code(s): H54.40 - BLINDNESS, ONE EYE, UNSPECIFIED EYE Status: Chronic Priority: High Current Visit: Yes (5) Hypertension SNOMED Code(s): 47170962 Code(s): I10 - ESSENTIAL (PRIMARY) HYPERTENSION Status: Chronic Priority : High Current Visit: Yes Qualifiers: Hypertension type: essential hypertension Qualified Code(s): I10 - Essential (primary) hypertension (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 1. Presyncope- RBBB with LAFB noted on EKG. Will consulted Dr Mendez to further evaluate with Cardiology. ECHo pending, will obtain Orthostatics. 2. HTN: Stable. Continue Norvasc for now. VTE prophylaxis: Lovenox Dispo: Possible discharge later today pending Cardiology consult.
--- NOTE | 2018-11-08 16:54 | PCM.DCSUM1 ---
Discharge Summary - Hospital Course Brief History: This 73-year-old lady who presented to the emergency department with a chief complaint of not feeling well, headache and abdominal pain. The patient reports that she has had no bowel movement in the past several days. 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 The patient's son is with her and has been helping with translation. The patient has been feeling weak and fatigued for several weeks and may have had a presyncopal episode. He described as losing her feet and she has to sit down on the ground. The patient's appetite has also been poor. She has had a history of chronic headaches secondary to her glaucoma and blind right eye. The patient today has denied any abdominal pain although she still is complaining of constipation. The patient has denied any fever or chills. The only medication that she has been taking his for her hypertension and this has been amlodipine at 5 mg by mouth daily. Also in the emergency department the patient's initial blood pressure was 186/ 99 mmHg. Her son says that she has been taking her medications and also has been noted to have both high and very low blood pressure. Diagnosis: Stroke: No - Discharge Data Discharge Date: 11/08/18 Discharge Disposition: Home, Self-Care 01 Condition: Stable - Discharge Diagnosis/Problem(s) (1) Neurocardiogenic pre-syncope SNOMED Code(s): 023098413 ICD Code: R55 - SYNCOPE AND COLLAPSE Status: Acute Priority: High (2) Weakness SNOMED Code(s): 08183480 ICD Code: R53.1 - WEAKNESS Status: Chronic Priority: High (3) Glaucoma SNOMED Code(s): 49328393 ICD Code: H40.9 - UNSPECIFIED GLAUCOMA Status: Chronic (4) Blind right eye SNOMED Code(s): 338716235 ICD Code: H54.40 - BLINDNESS, ONE EYE, UNSPECIFIED EYE Status: Chronic Priority: High (5) Hypertension SNOMED Code(s): 97504282 ICD Code: I10 - ESSENTIAL (PRIMARY) HYPERTENSION Status: Chronic Priority : High Qualifiers: Hypertension type: essential hypertension Qualified Code(s): I10 - Essential (primary) hypertension (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) SNOMED Code(s): 15128439 ICD Code: I45.2 - BIFASCICULAR BLOCK Status: Chronic Priority: High - Patient Summary/Data Consults: Consultations 11/08/18 10:08 Consult to Physician [CONS] Routine - Patient Instructions Diet: Usual Diet as Tolerated Activity: As Tolerated, Rest and Relax Today Driving: Do Not Drive Showering/Bathing: May Shower Notify Provider of: Fever, Increased Pain, Swelling and Redness, Drainage, Nausea and/or Vomiting - Discharge Plan *PRESCRIPTION DRUG MONITORING PROGRAM REVIEWED*: Not Applicable *COPY OF PRESCRIPTION DRUG MONITORING REPORT IN PATIENT SHY: Not Applicable Home Medications: Home Meds amLODIPine Besylate [Amlodipine Besylate] 5 mg PO DAILY 11/06/18 [History] Dorzolamide HCl/Timolol Maleat [Dorzolamide-Timolol Eye Drops] 1 drop EYERT BID 11/07/18 [History] Oxygen Therapy Mode: Room Air Patient Handouts: Migraine Headache, [id number], Dizziness, [id number] Referrals: [facility] [Outside] ([facility] on Friday, November 09, 2018 to arrange for 1 week post hospital follow-up appointment with a primary care provider) Hanny Sanders MD [Physician] - (Please call specialty clinic on Friday, November 09, 2018 to arrange for outpatient follow-up consultation) - Discharge Summary/Plan Comment DC Time >30 min.: No Discharge Summary/Plan Comment: Discharge Diagnoses: Dizziness-resolved. Headache- improved and chronic Nirmal was admitted and monitored on telemetry for possible syncopal episode. No events noted on telemetry, EK rvealed RBBB. Cardiology was consulted and was able to obtain much more history. She was evaluated quite extensively at [facility] regarding dizziness, headaches and abdominal pain. Calcifications noted on CT, Will obtain history and refer to Neurology to further evaluate. She is feeling better today and ready to go home. She will be sent home with Lea patch from Dr Mendez to further evaluate cardiac reason for dizziness. She will be set up with PCP as well. Natalie Gunn has helped with translation. She is to return to ED or clinic if concerns should arise. Continue home medications. - General Info Date of Service: 11/09/18 Admission Dx/Problem (Free Text: Admission Diagnosis/Problem Admission Diagnosis/Problem Pre- syncope Subjective Update: Reports feeling much better, headache has improved, but still slightly there. No chest pain or palpitations. No abdominal pain, she did have BM today. Functional Status: Reports: Pain Controlled, Tolerating Diet, Ambulating, Urinating - Review of Systems General: Reports: No Symptoms. Denies: Fever, Weakness, Malaise Pulmonary: Reports: No Symptoms. Denies: Shortness of Breath Cardiovascular: Reports: No Symptoms. Denies: Lightheadedness Gastrointestinal: Reports: No Symptoms. Denies: Abdominal Pain, Nausea, Vomiting Genitourinary: Reports: No Symptoms. Denies: Dysuria, Frequency Musculoskeletal: Reports: No Symptoms Neurological: Reports: No Symptoms. Denies: Dizziness, Syncope - Patient Data Vitals - Most Recent: Last Vital Signs Temp 97.9 F 11/08/18 16:00 Pulse 89 11/08/18 16:00 Resp 18 11/08/18 16:00 BP 131/89 11/08/18 16:00 Pulse Ox 98 11/08/18 16:00 Orthostatic Blood Pressure [ 145/91 Standing] Orthostatic Blood Pressure [ 145/84 Sitting] Orthostatic Blood Pressure [ 143/83 Supine] Weight - Most Recent: 62.278 kg I&O - Last 24 hours: Intake & Output 11/08/18 11/08/18 11/08/18 06:59 14:59 22:59 Intake Total 1400 800 Output Total 825 1050 Balance 575 -250 Lab Results - Last 24 hrs: Laboratory Results - last 24 hr 11/08/18 11/08/18 11/08/18 Range/Units 05:31 05:31 05:31 WBC 5.16 (4.0-11.0) K/uL RBC 4.85 (4.30-5.90) M/uL Hgb 10.5 L (12.0-16.0) g/dL Hct 33.9 L (36.0-46.0) % MCV 69.9 L (80.0-98.0) fL MCH 21.6 L (27.0-32.0) pg MCHC 31.0 (31.0-37.0) g/dL RDW Std Deviation 34.7 (28.0-62.0) fl RDW Coeff of Yvette 14 (11.0-15.0) % Plt Count 247 (150-400) K/uL MPV 10.70 (7.40-12.00) fL Neut % (Auto) 46.7 L (48.0-80.0) % Lymph % (Auto) 43.4 H (16.0-40.0) % Yancey % (Auto) 7.2 (0.0-15.0) % Eos % (Auto) 2.3 (0.0-7.0) % Baso % (Auto) 0.4 (0.0-1.5) % Neut # (Auto) 2.4 (1.4-5.7) K/uL Lymph # (Auto) 2.2 (0.6-2.4) K/uL Yancey # (Auto) 0.4 (0.0-0.8) K/uL Eos # (Auto) 0.1 (0.0-0.7) K/uL Baso # (Auto) 0.0 (0.0-0.1) K/uL Nucleated RBC % 0.0 /100WBC Nucleated RBCs # 0 K/uL Sodium 143 (136-145) mmol/L Potassium 3.5 (3.5-5.1) mmol/L Chloride 108 H (98-107) mmol/L Carbon Dioxide 25.1 (21.0-32.0) mmol/L BUN 8 (7.0-18.0) mg/dL Creatinine 0.7 (0.6-1.0) mg/dL Est Cr Clr Drug Dosing 68.01 mL/min Estimated GFR (MDRD) > 60.0 ml/min Glucose 99 (74-106) mg/dL Calcium 9.1 (8.5-10.1) mg/dL Magnesium 1.6 L (1.8-2.4) mg/dL Total Bilirubin 0.3 (0.2-1.0) mg/dL AST 22 (15-37) IU/L ALT 26 (14-63) IU/L Alkaline Phosphatase 95 (46-116) U/L Total Protein 7.5 (6.4-8.2) g/dL Albumin 3.4 (3.4-5.0) g/dL Globulin 4.1 H (2.6-4.0) g/dL Albumin/Globulin Ratio 0.8 L (0.9-1.6) TSH 3rd Generation 2.26 (0.36-3.74) uIU/mL Med Orders - Current: Current Medications Acetaminophen (Tylenol) 650 mg PO Q4H PRN PRN Reason: Pain (mild 1-3) Amlodipine Besylate (Norvasc) 5 mg PO DAILY [facility] Last Admin: 11/08/18 08:36 Dose: 5 mg Enoxaparin Sodium (Lovenox) 40 mg SUBCUT Q24H [facility] Last Admin: 11/08/18 08:37 Dose: 40 mg Oxycodone HCl (Oxycodone) 5 mg PO Q4H PRN PRN Reason: Pain (severe 7-10) Dorzolamide 2% Ophth (Soln 10 Ml Bottle) 0 each EYERT BID [facility] Last Admin: 11/08/18 08:37 Dose: 1 each Senna (Senna) 8.6 mg PO BID PRN PRN Reason: Constipation Last Admin: 11/07/18 10:20 Dose: 8.6 mg Temazepam (Restoril) 15 mg PO BEDTIME PRN PRN Reason: Sleep Last Admin: 11/07/18 20:52 Dose: 15 mg Discontinued Medications Atropine Sulfate (Atropine 1% Ophth Soln) 0 ml EYERT DAILY [facility] Last Admin: 11/07/18 09:18 Dose: Not Given Dorzolamide HCl (Trusopt 2% Ophth Soln) 0 ml .XX DAILY [facility] Last Admin: 11/07/18 09:18 Dose: Not Given Sodium Chloride (Normal Saline) 1,000 mls @ 999 mls/hr IV STAT ONE Stop: 11/06/18 17:40 Last Admin: 11/06/18 17:02 Dose: 999 mls/hr Sodium Chloride (Normal Saline) 1,000 mls @ 125 mls/hr IV ASDIRECTED [facility] Last Admin: 11/06/18 20:07 Dose: 125 mls/hr Sodium Chloride (Normal Saline) 1,000 mls @ 100 mls/hr IV ASDIRECTED [facility] Last Admin: 11/07/18 15:22 Dose: 100 mls/hr Magnesium Sulfate 2 gm/ Premix 50 mls @ 50 mls/hr IV ONETIME ONE Stop: 11/08/18 09:10 Last Admin: 11/08/18 08:36 Dose: 50 mls/hr Magnesium Sulfate (Magnesium Sulfate 2 Gm In Water 50 Ml) Confirm Administered Dose 50 mls @ as directed .ROUTE .STK-MED ONE Stop: 11/08/18 08:22 Last Admin: 11/08/18 08:42 Dose: Not Given Influenza Virus Vaccine (Pharmacy To Dose - Influenza Vaccine) 1 each IM ONETIME ONE Stop: 11/07/18 12:01 Influenza Virus Vaccine (Fluzone High-Dose Syringe) 180 mcg IM .ONCE ONE Stop: 11/07/18 10:01 Last Admin: 11/07/18 18:42 Dose: Not Given Ketorolac Tromethamine (Toradol) 30 mg IVPUSH ONETIME ONE Stop: 11/06/18 16:41 Last Admin: 11/06/18 17:02 Dose: 30 mg Morphine Sulfate (Morphine) 2 mg IVPUSH ONETIME ONE Stop: 11/06/18 19:07 Last Admin: 11/06/18 19:19 Dose: 2 mg Ondansetron HCl (Zofran) 4 mg IVPUSH ONETIME ONE Stop: 11/06/18 16:41 Last Admin: 11/06/18 17:02 Dose: 4 mg Ondansetron HCl (Zofran) 4 mg IVPUSH ONETIME ONE Stop: 11/06/18 19:02 Last Admin: 11/06/18 19:18 Dose: 4 mg Dorzolamide 2% Ophth (Soln 10 Ml Bottle) 0 each EYERT DAILY [facility] Potassium Chloride (Klor-Con M20) 20 meq PO ONETIME ONE Stop: 11/07/18 09:15 Last Admin: 11/07/18 10:20 Dose: 20 meq Potassium Chloride (Klor-Con M20) 40 meq PO ONETIME ONE Stop: 11/08/18 08:12 Last Admin: 11/08/18 08:36 Dose: 40 meq - Exam General: Reports: Alert, Oriented, Cooperative, No Acute Distress Neck: Reports: Supple Lungs: Reports: Clear to Auscultation, Normal Respiratory Effort Cardiovascular: Reports: Regular Rate, Regular Rhythm GI/Abdominal Exam: Normal Bowel Sounds, Soft, Non-Tender, No Mass Back Exam: Reports: Normal Inspection, Full Range of Motion Extremities: Normal Inspection, Normal Range of Motion, Non-Tender Neurological: Reports: No New Focal Deficit Psy/Mental Status: Reports: Alert, Normal Affect, Normal Mood *Q Meaningful Use (DIS) - VTE *Q VTE Mechanical Contraindications *Q: At Risk for Falls
--- NOTE | 2018-11-08 18:18 | CONS ---
DATE OF CONSULTATION: DATE OF : 1945 PRIMARY CARE PHYSICIAN: None PCP REASON FOR CONSULTATION: Presyncope. HISTORY OF PRESENT ILLNESS: This is a 73-year-old female who is non-Panamanian speaker with a history of hypertension. She came into the hospital because of multiple complaints including abdominal pain, headaches, eye vision, feeling dizzy, and heart palpitation. She moved in from [facility] to [facility] in May 2017 to [place], [place] and she moved to [place], [place] 3 months ago. When she first arrived, she was seen by a doctor in [facility]. She had extensive workup for the complaint of the vision loss as well as the headaches, abdominal pain. The history was taken from her son who can speak Panamanian and there is some language barrier, so the history could not be a complete history. At that time, her son stated that when she was in [facility] echocardiogram, MRI of the brain, and the Ophthalmology consultation was performed, but he could not remember any other testing, but she was not certain enough. Other than that, he did not recall any diagnosis of a heart attack, heart failure, or irregular heartbeat. The main reason that she was admitted to the hospital because of multiple complaints including dizziness, when she walked from her room to the bathroom as well as feeling palpitation with activities and also with complaint of abdominal pain, body ache when she was eating as well as headaches. Otherwise, her blood work so far is unremarkable. She has some mild anemia with hematocrit of 33. Otherwise, she denied bleeding. Her potassium is 3.5, BUN is normal, creatinine is normal. EKG showed right bundle-branch block pattern. However, there is normal MI interval of 188. There is no event on the telemetry. The troponin was checked x1, it was negative. REVIEW OF SYSTEMS: Cannot be obtained due to the language barrier. SOCIAL HISTORY FAMILY HISTORY: Taken from her son and seemed to be negative for smoking, drug use, or alcohol consumption. PHYSICAL EXAMINATION: VITAL SIGNS: The orthostatic vital signs negative. Current blood pressure is like 131/89, temperature 36.6, O2 saturation is 98 on room air, respiration 18, and heart rate of 89. HEENT: Not pale. Not jaundiced. NECK: No JVD. HEART: Normal S1, S2. No murmur. LUNGS: Clear. ABDOMEN: Soft, nontender. Bowel sounds are present. No hepatosplenomegaly. EXTREMITIES: Legs no edema. LABORATORY INVESTIGATIONS: CBC show WBC 5, hematocrit of 33, hemoglobin of 10, platelet 241. Sodium 143, potassium 3.5, chloride 108, bicarb 25, BUN 8, creatinine 0.7, and magnesium 1.6. Troponin was negative x1. Liver functions negative. Amylase is normal. Lipase is normal. TSH is normal. Urinalysis is negative. CT of the head showed dense calcification in right cerebellum as well as dense calcification in basilar ganglia. The prelim echocardiogram did show ejection fraction of 65%, trace MR, TR and AR. Normal RV systolic function. Normal RV chamber dimension as well as RV dimension. Orthostatic vital signs negative. EKG shows sinus rhythm with a heart rate of 96, MI interval 188, QRS duration 130. Complete right bundle-branch block pattern. Abdominal CT with contrast is negative for acute intraperitoneal abnormalities. ASSESSMENT AND PLAN: This is a 73-year-old female with history of hypertension who came into the hospital with multiple complaints including dizziness, heart palpitation, abdominal pain, headaches, vision change, and dizziness. So far it is still unclear why she got dizzy as well as palpitation. Recommended to do Zio patch to detect any abnormal heart rhythm, this can be done as an outpatient. She seemed to have extensive workup for her heart and her brain. I will obtain the records from [facility] to see what has been done. Regarding dense calcification in the right cerebellum, she probably needs to be seen by neurologist as well. That could be the reason why she got dizzy as well. Her echocardiogram seemed to be unremarkable. Normal LV systolic function, RV systolic function, LV and RV dimension. Only trace MR, trace TR, and trace AR. From my standpoint, she can be discharged and we will review her records. CAROLINE / MAXI /[id number]
== END 2018-11-08 18:00 | disposition home or self-care (01) ==
LOC: MW.ED 16:05 → MW.MS 22:03
PROVIDERS: ADMIT Internal Medicine; ATTEND Internal Medicine
DX: R55 Syncope and collapse (principal); R53.1 Weakness; E87.6 Hypokalemia; I45.2 Bifascicular block; I10 Essential (primary) hypertension; H54.61 Unqualified visual loss, right eye, normal vision left eye; H40.9 Unspecified glaucoma; K59.09 Other constipation; Z79.899 Other long term (current) drug therapy
CPT/HCPCS: 36415; 70450; 74022; 74177; 80053; 81001; 82150; 83690; 83735; 84100; 84443; 84484; 85025; 87804; 93005; 93306; 96361; 96372; 96374; 96375; 96376; 99285; A9270; G0378; J1650; J1885; J2270; J2405; J3475; J7040; 99284